=== PATIENT | female | born 1955 | race Caucasian/White ===

== ENCOUNTER 2018-01-01 15:42 | Inpatient (IN) | payer OTHER ==
[2018-01-01] MEDS ORDERED: Fentanyl 100 MCG/2 ML VIAL ONE (16:32)
[2018-01-01] MEDS ORDERED: Ondansetron PF 4 MG/2 ML Vial ONE (16:32)
[2018-01-01 17:07] LABS: Bilirubin Negative (Negative); Blood, Urine Negative (Negative); Clarity CLEAR (Clear); Glucose, Urine (Dipstick) Negative (Negative); Leukocyte Negative (Negative); Nitrite Negative (Negative); Protein, Urine (Dipstick) Negative (Neg-Trace); Specific Gravity, Urine 1.033 (1.002-1.036); Urobilinogen 0.2 mg/dL (0.2-1.0); pH, Urine 5.5 (5.0-9.0)
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
[2018-01-01 17:43] LABS: #Eosinphils 0.1 thou/uL (0.0-0.7); #Lymphocytes 1.4 thou/uL (1.20-3.40); #Monocytes 0.9 thou/uL (0.11-0.59); #Neutrophils 16.5 thou/uL (1.40-6.50); %Basophils 0.1 % (0.0-1.0); %Eosinophils 0.3 % (0.0-10.0); %Lymphocytes 7.2 % (21.0-51.0); %Monocytes 4.9 % (0.0-10.0); %Neutrophils 87.5 % (42.0-75.0); Hemoglobin 13.7 g/dL (12.0-16.0); Mean Corpuscular HGB CONC 32.8 g/dL (32.0-36.0); Mean Corpuscular Hemoglobin 29.8 pg (27.0-31.0); Mean Corpuscular Volume 90.9 fL (78.0-98.0); Mean Platelet Volume 8.1 fL (7.4-10.4); Platelet Count 250 thou/uL (130-400); RBC Distribution Width 12.1 % (11.5-14.5); Red Blood Cell (RBC) Count 4.59 mill/uL (4.20-5.40); White Blood Cell (WBC) Count 18.9 thou/uL (4.8-10.8)
[2018-01-01] MEDS ORDERED: Morphine 2 MG/ML SYRINGE ONE (17:45)
[2018-01-01] MEDS ORDERED: Adacel (T-DAP) 0.5 ML SYRINGE ONE (17:46)
[2018-01-01] MEDS ORDERED: Ketorolac Tromethamine 30 MG/ML VIAL ONE ×2 (17:46→17:48)
[2018-01-01 17:49] LABS: PTT 27.3 SEC (22.9-36.1); Prothrombin Time 13.4 SEC (12.0-14.7)
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
[2018-01-01 18:10] LABS: ALT (SGPT) 29 U/L (8-55); AST (SGOT) 35 U/L (5-34); Albumin 3.9 g/dL (3.4-4.8); Alcohol Less than 10 mg/dL (Less than 10); Alkaline Phosphatase 84 U/L (40-150); Anion Gap 15 mmol/L (10-20); BUN (Urea Nitrogen) 19 mg/dL (9.8-20.1); Bilirubin, Total 0.5 mg/dL (0.2-1.2); Calc. Creatinine Clearance 0 mL/min (70-130); Calcium 9.4 mg/dL (7.8-10.44); Carbon Dioxide 21 mmol/L (23-31); Chloride 105 mmol/L (98-107); Estimated GFR-MDRD 67; Globulin 2.8 g/dL (2.4-3.5); Glucose 116 mg/dL (80-115); Potassium 4.1 mmol/L (3.5-5.1); Protein, Total 6.7 g/dL (6.0-8.3); Sodium 137 mmol/L (136-145)
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
[2018-01-01] MEDS ORDERED: Ondansetron ODT 4 MG TAB SL PRN (19:43)
[2018-01-01] MEDS ORDERED: Sodium Chloride 0.9% 1,000 ML IV SCH (19:43)
[2018-01-01] MEDS ORDERED: Ondansetron PF 4 MG/2 ML Vial IVP PRN ×2 (19:43→19:54)
[2018-01-01] MEDS ORDERED: traMADol HCl 50 MG TAB PO PRN (19:54)
[2018-01-01] MEDS ORDERED: Morphine 2 MG/ML SYRINGE IVP PRN (19:54)
[2018-01-01] MEDS ORDERED: Dextrose 50% Abboject 50 ML SYRINGE SLOW IVP PRN (19:54)
[2018-01-01] MEDS ORDERED: Dextrose 5% in Water 1,000 ML IV PRN (19:54)
[2018-01-01 20:55] VITALS: BMI 34.2
[2018-01-01] MEDS: Ibuprofen 800 MG TAB PO SCH (20:58)
[2018-01-01] MEDS: Famotidine 20 MG TAB PO SCH (20:59)
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
[2018-01-01] MEDS: Morphine 4 MG/ML VIAL SLOW IVP PRN (22:46)
[2018-01-01] MEDS: Acetaminophen 325 MG TAB PO SCH (23:10)
[2018-01-02] MEDS: Morphine 4 MG/ML VIAL SLOW IVP PRN (02:10)
[2018-01-02] MEDS: HYDROcodone/Acetaminophen 7.5/325 mg Tablet PO PRN ×3 (03:45→21:17)
[2018-01-02 05:35] LABS: #Lymphocytes 1.7 thou/uL (1.20-3.40); #Monocytes 0.8 thou/uL (0.11-0.59); #Neutrophils 7.3 thou/uL (1.40-6.50); %Basophils 0.4 % (0.0-1.0); %Eosinophils 0.3 % (0.0-10.0); %Lymphocytes 16.9 % (21.0-51.0); %Monocytes 8.5 % (0.0-10.0); %Neutrophils 73.9 % (42.0-75.0); Hemoglobin 11.7 g/dL (12.0-16.0); Mean Corpuscular Volume 90.9 fL (78.0-98.0); Mean Platelet Volume 8.2 fL (7.4-10.4); Platelet Count 250 thou/uL (130-400); RBC Distribution Width 12.3 % (11.5-14.5); White Blood Cell (WBC) Count 9.9 thou/uL (4.8-10.8)
[2018-01-02 06:01] LABS: Anion Gap 13 mmol/L (10-20); BUN (Urea Nitrogen) 24 mg/dL (9.8-20.1); Calc. Creatinine Clearance 94 mL/min (70-130); Calcium 8.9 mg/dL (7.8-10.44); Carbon Dioxide 22 mmol/L (23-31); Chloride 106 mmol/L (98-107); Estimated GFR-MDRD 66; Glucose 126 mg/dL (80-115); Potassium 4.1 mmol/L (3.5-5.1); Sodium 137 mmol/L (136-145)
[2018-01-02] MEDS: Acetaminophen 325 MG TAB PO SCH ×4 (06:12→18:22)
[2018-01-02] MEDS: Ibuprofen 800 MG TAB PO SCH ×3 (06:12→21:17)
[2018-01-02] MEDS: traMADol HCl 50 MG TAB PO PRN ×2 (09:04→15:29)
[2018-01-02] MEDS: Famotidine 20 MG TAB PO SCH ×2 (09:04→21:17)
[2018-01-02] MEDS: Cyclobenzaprine 10 MG TAB PO PRN (09:04)
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
--- NOTE | 2018-01-02 09:30 | RAD ---
RIGHT SHOULDER 2 VIEWS: HISTORY: A 62-year-old female with a history of followup proximal humeral fracture. FINDINGS: Markedly comminuted fracture involving the humeral neck with marked foreshortening and overriding of the distal humerus. No dislocation. IMPRESSION: Comminuted right humeral neck fracture with marked foreshortening and overriding. POS: [facility]
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
[2018-01-03] MEDS: traMADol HCl 50 MG TAB PO PRN (03:53)
[2018-01-03] MEDS: Ibuprofen 800 MG TAB PO SCH ×3 (05:42→20:38)
[2018-01-03] MEDS: Acetaminophen 325 MG TAB PO SCH (05:47)
[2018-01-03 05:53] LABS: #Basophils 0.1 thou/uL (0.0-0.2); #Eosinphils 0.2 thou/uL (0.0-0.7); #Lymphocytes 1.3 thou/uL (1.20-3.40); #Monocytes 0.9 thou/uL (0.11-0.59); #Neutrophils 7.9 thou/uL (1.40-6.50); %Basophils 0.5 % (0.0-1.0); %Lymphocytes 12.7 % (21.0-51.0); %Monocytes 8.5 % (0.0-10.0); %Neutrophils 76.3 % (42.0-75.0); Hemoglobin 11.7 g/dL (12.0-16.0); Mean Corpuscular HGB CONC 32.3 g/dL (32.0-36.0); Mean Corpuscular Hemoglobin 29.8 pg (27.0-31.0); Mean Corpuscular Volume 92.2 fL (78.0-98.0); Mean Platelet Volume 8.3 fL (7.4-10.4); Platelet Count 201 thou/uL (130-400); RBC Distribution Width 12.4 % (11.5-14.5); Red Blood Cell (RBC) Count 3.92 mill/uL (4.20-5.40); White Blood Cell (WBC) Count 10.4 thou/uL (4.8-10.8)
[2018-01-03] MEDS ORDERED: traMADol HCl 50 MG TAB PO PRN ×2 (08:43→14:42)
[2018-01-03] MEDS: Famotidine 20 MG TAB PO SCH ×2 (09:19→20:38)
[2018-01-03] MEDS: Enoxaparin Sodium 40 MG/0.4 ML SYRINGE SC SCH (09:19)
[2018-01-03] MEDS: Senokot S 8.6-50 MG TAB PO SCH ×2 (09:20→20:38)
[2018-01-03] MEDS: Gabapentin 100 MG CAP PO SCH ×3 (09:20→20:38)
[2018-01-03] MEDS: Polyethylene Glycol 3350 17 GM Packet PO SCH (09:21)
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
[2018-01-03] MEDS: traMADol HCl 50 MG TAB PO SCH ×2 (11:45→17:27)
[2018-01-03] MEDS: Acetaminophen 500 MG TAB PO SCH ×2 (11:45→17:26)
[2018-01-03] MEDS: Ondansetron ODT 4 MG TAB PO PRN (19:25)
[2018-01-04] MEDS: Acetaminophen 500 MG TAB PO SCH ×4 (00:11→17:24)
[2018-01-04] MEDS: traMADol HCl 50 MG TAB PO SCH ×4 (00:12→17:24)
[2018-01-04] MEDS: Ibuprofen 800 MG TAB PO SCH ×3 (05:03→21:06)
[2018-01-04] MEDS: Famotidine 20 MG TAB PO SCH ×2 (09:19→21:06)
[2018-01-04] MEDS: Senokot S 8.6-50 MG TAB PO SCH ×2 (09:19→21:07)
[2018-01-04] MEDS: Gabapentin 100 MG CAP PO SCH ×3 (09:19→21:06)
[2018-01-04] MEDS: Cyclobenzaprine 10 MG TAB PO PRN ×2 (09:20→21:06)
[2018-01-04] MEDS: Enoxaparin Sodium 40 MG/0.4 ML SYRINGE SC SCH (09:20)
[2018-01-04] MEDS: Polyethylene Glycol 3350 17 GM Packet PO SCH (09:20)
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
[2018-01-05] MEDS: Acetaminophen 500 MG TAB PO SCH ×4 (00:45→18:14)
[2018-01-05] MEDS: traMADol HCl 50 MG TAB PO SCH ×4 (00:46→18:13)
[2018-01-05] MEDS: Cyclobenzaprine 10 MG TAB PO PRN ×2 (03:12→20:40)
[2018-01-05] MEDS: Ibuprofen 800 MG TAB PO SCH ×3 (05:34→20:41)
[2018-01-05] MEDS: Polyethylene Glycol 3350 17 GM Packet PO SCH (09:06)
[2018-01-05] MEDS: Senokot S 8.6-50 MG TAB PO SCH ×2 (09:06→20:41)
[2018-01-05] MEDS: Famotidine 20 MG TAB PO SCH ×2 (09:06→20:41)
[2018-01-05] MEDS: Gabapentin 100 MG CAP PO SCH ×3 (09:06→20:41)
[2018-01-05] MEDS: Enoxaparin Sodium 40 MG/0.4 ML SYRINGE SC SCH (09:06)
[2018-01-06] MEDS: traMADol HCl 50 MG TAB PO SCH ×4 (00:17→18:10)
[2018-01-06] MEDS: Acetaminophen 500 MG TAB PO SCH ×4 (00:17→18:10)
[2018-01-06] MEDS: Ibuprofen 800 MG TAB PO SCH ×3 (05:41→21:31)
[2018-01-06] MEDS: Enoxaparin Sodium 40 MG/0.4 ML SYRINGE SC SCH (09:55)
[2018-01-06] MEDS: Polyethylene Glycol 3350 17 GM Packet PO SCH (09:56)
[2018-01-06] MEDS: Gabapentin 100 MG CAP PO SCH ×3 (09:56→21:31)
[2018-01-06] MEDS: Famotidine 20 MG TAB PO SCH ×2 (09:57→21:31)
[2018-01-06] MEDS: Senokot S 8.6-50 MG TAB PO SCH ×2 (09:57→20:22)
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
[2018-01-06] MEDS: Ondansetron ODT 4 MG TAB PO PRN (18:10)
[2018-01-06] MEDS: Cyclobenzaprine 10 MG TAB PO PRN (21:31)
[2018-01-07] MEDS: Acetaminophen 500 MG TAB PO SCH ×4 (00:54→18:08)
[2018-01-07] MEDS: traMADol HCl 50 MG TAB PO SCH ×4 (00:55→18:08)
[2018-01-07] MEDS: Ibuprofen 800 MG TAB PO SCH ×3 (05:57→22:00)
[2018-01-07] MEDS: Enoxaparin Sodium 40 MG/0.4 ML SYRINGE SC SCH (09:59)
[2018-01-07] MEDS: Polyethylene Glycol 3350 17 GM Packet PO SCH (10:00)
[2018-01-07] MEDS: Gabapentin 100 MG CAP PO SCH ×3 (10:00→21:59)
[2018-01-07] MEDS: Senokot S 8.6-50 MG TAB PO SCH ×2 (10:01→20:03)
[2018-01-07] MEDS: Famotidine 20 MG TAB PO SCH ×2 (11:56→21:59)
[2018-01-07] MEDS ORDERED: Triple Antibiotic Oint 1 GM Packet TOP PRN (14:20)
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
[2018-01-08] MEDS: traMADol HCl 50 MG TAB PO SCH ×4 (00:51→18:02)
[2018-01-08] MEDS: Acetaminophen 500 MG TAB PO SCH ×4 (00:51→18:02)
[2018-01-08] MEDS: Ibuprofen 800 MG TAB PO SCH ×3 (06:51→21:08)
[2018-01-08] MEDS: Gabapentin 100 MG CAP PO SCH ×3 (09:01→21:08)
[2018-01-08] MEDS: Famotidine 20 MG TAB PO SCH ×2 (09:01→21:08)
[2018-01-08] MEDS: Senokot S 8.6-50 MG TAB PO SCH ×2 (09:01→21:08)
[2018-01-08] MEDS: Enoxaparin Sodium 40 MG/0.4 ML SYRINGE SC SCH (09:01)
[2018-01-08] MEDS: Polyethylene Glycol 3350 17 GM Packet PO SCH (09:01)
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
--- NOTE | 2018-01-08 20:20 | EKG ---
Test Reason : TRAUMA 2 Blood Pressure : / mmHG Vent. Rate : 065 BPM Atrial Rate : 065 BPM P-R Int : 172 ms QRS Dur : 080 ms QT Int : 418 ms P-R-T Axes : 051 013 040 degrees QTc Int : 434 ms Normal sinus rhythm Nonspecific T wave abnormality Abnormal ECG Confirmed by GREG CERVANTES, ARIC ([id number]), sports editor ADELA CARVALHO ([id number]) on 01/08/2018 8:19:45 PM Referred By: Confirmed By:ARIC GARZA MD
[2018-01-09] MEDS: Acetaminophen 500 MG TAB PO SCH ×4 (00:09→17:57)
[2018-01-09] MEDS: traMADol HCl 50 MG TAB PO SCH ×4 (00:09→17:57)
[2018-01-09] MEDS: Ibuprofen 800 MG TAB PO SCH ×3 (05:11→21:56)
[2018-01-09] MEDS: Gabapentin 100 MG CAP PO SCH ×3 (08:24→21:04)
[2018-01-09] MEDS: Enoxaparin Sodium 40 MG/0.4 ML SYRINGE SC SCH (08:24)
[2018-01-09] MEDS: Famotidine 20 MG TAB PO SCH ×2 (08:24→21:04)
[2018-01-09] MEDS: Senokot S 8.6-50 MG TAB PO SCH ×2 (08:24→21:04)
[2018-01-09] MEDS ORDERED: Zolpidem Tartrate 5 MG TAB PO PRN (20:58)
[2018-01-09] MEDS ORDERED: guaiFENesin/DM ER PO PRN (20:59)
[2018-01-09] MEDS ORDERED: guaiFENesin/DM ER PO SCH (21:00)
[2018-01-09] MEDS: Atorvastatin Calcium 10 MG TAB PO SCH (21:56)
[2018-01-09] MEDS: Fluticasone Propionate Nasal Spray 16 gm Bottle NASAL SCH (21:57)
[2018-01-10] MEDS: Acetaminophen 500 MG TAB PO SCH ×4 (02:41→17:39)
[2018-01-10] MEDS: traMADol HCl 50 MG TAB PO SCH ×4 (02:41→17:38)
[2018-01-10] MEDS: Ibuprofen 800 MG TAB PO SCH ×3 (05:34→21:43)
[2018-01-10] MEDS ORDERED: hydrALAZINE 10 MG TAB PO SCH (07:00)
[2018-01-10] MEDS ORDERED: hydrALAZINE 20 MG/ML VIAL SLOW IVP SCH (07:00)
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
[2018-01-10] MEDS: Famotidine 20 MG TAB PO SCH ×2 (08:30→20:29)
[2018-01-10] MEDS: Enoxaparin Sodium 40 MG/0.4 ML SYRINGE SC SCH (08:30)
[2018-01-10] MEDS: Senokot S 8.6-50 MG TAB PO SCH ×2 (08:30→20:29)
[2018-01-10] MEDS: Gabapentin 100 MG CAP PO SCH ×3 (08:30→20:30)
[2018-01-10] MEDS: Fluticasone Propionate Nasal Spray 16 gm Bottle NASAL SCH ×2 (08:32→20:36)
[2018-01-10] MEDS ORDERED: Fluticasone Propionate Nasal Spray 16 gm Bottle NASAL SCH (09:00)
--- NOTE | 2018-01-10 09:48 | ULT ---
BILATERAL LOWER EXTREMITY VENOUS DOPPLER ULTRASOUND: DATE: 01/10/2018. COMPARISON: None. HISTORY: Edema, swelling, and pain, assess for DVT. TECHNIQUE: Multiplanar, farrar scale, sonographic imaging of venous structures bilateral lower extremities obtaine d with color flow and spectral analysis. FINDINGS: Bilateral common femoral vein, greater saphenous vein, profunda femoral vein, femoral vein, popliteal vein, and posterior tibial vein are patent. Normal blood flow, augmentation, and compression seen b ilaterally. No evidence for DVT on either side. IMPRESSION: No evidence for deep venous thrombosis of either lower extremity. POS: MATT
--- NOTE | 2018-01-10 14:49 | PRG ---
DATE OF SERVICE: 01/10/2018 SUBJECTIVE: German is doing well. No complaints. Waiting for rehab bed. OBJECTIVE: GENERAL: She is afebrile. VITAL SIGNS: Stable. CHEST: Clear. HEART: Regular rate and rhythm. ABDOMEN: Nontender. TLSO brace in place. ASSESSMENT: Multiple compression fractures. PLAN: She is set to go to rehab in [place] when the insurance approves. Job ID: [id number]
[2018-01-10] MEDS: Atorvastatin Calcium 10 MG TAB PO SCH (20:29)
[2018-01-11] MEDS: Acetaminophen 500 MG TAB PO SCH ×3 (00:30→11:46)
[2018-01-11] MEDS: traMADol HCl 50 MG TAB PO SCH ×3 (00:30→11:46)
[2018-01-11] MEDS: Ibuprofen 800 MG TAB PO SCH (06:11)
[2018-01-11] MEDS: Enoxaparin Sodium 40 MG/0.4 ML SYRINGE SC SCH (08:19)
[2018-01-11] MEDS: Gabapentin 100 MG CAP PO SCH (08:19)
[2018-01-11] MEDS: Fluticasone Propionate Nasal Spray 16 gm Bottle NASAL SCH (08:20)
[2018-01-11] MEDS: Senokot S 8.6-50 MG TAB PO SCH (08:20)
[2018-01-11] MEDS: Famotidine 20 MG TAB PO SCH (08:20)
[2018-01-11 11:51] VITALS: BP 156/95; TEMP 97.9
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
== END 2018-01-11 14:46 | disposition home or self-care (01) | DRG 565 ==
LOC: ERS 15:42 → SURG B 17:14 → ERS 19:30
PROVIDERS: ADMIT Surgery; ATTEND Surgery
DX: S22.22XA Fracture of body of sternum, initial encounter for closed fracture (principal); S42.211A Unspecified displaced fracture of surgical neck of right humerus, initial encounter for closed fracture; S22.068A Other fracture of T7-T8 thoracic vertebra, initial encounter for closed fracture; S22.088A Other fracture of T11-T12 vertebra, initial encounter for closed fracture; S32.038A Other fracture of third lumbar vertebra, initial encounter for closed fracture; J98.11 Atelectasis; R09.02 Hypoxemia; E78.5 Hyperlipidemia, unspecified; V89.2XXA Person injured in unspecified motor-vehicle accident, traffic, initial encounter; Y99.0 Civilian activity done for income or pay; Y92.488 Other paved roadways as the place of occurrence of the external cause
CPT/HCPCS: 36415; 51702; 70450; 71045; 71260; 72125; 74177; 80048; 80053; 80307; 81003; 85025; 85610; 85730; 87086; 90471; 90715; 93005; 93970; 94640; 94799; 96374; 96375; G0390; G8978-GP-CL; G8979-GP-CI; G8987-GO-CK; G8988-GO-CJ; J1650; J1885; J2270; J2405; J3010; J7620; L0639; Q0162